=== PATIENT | male | born 1965 | race Caucasian/White ===

== ENCOUNTER 2022-01-31 03:29 | Emergency (ER) | payer MEDICAID ==
[~2022-01-31] VITALS: Ht 185.4 cm; Wt 95.3 kg
[2022-01-31 03:37] VITALS: BP 156/87
--- NOTE | 2022-01-31 03:37 | NUR ---
to bed via wheelchair
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
--- NOTE | 2022-01-31 03:54 | NUR ---
RECIEVED VERBAL ORDER TO GIVE 60MG TORADOL IM FOR PAIN. ORDERS CARRIED OUT.
[2022-01-31] MEDS ORDERED: KETOROLAC 60 MG/2 ML VIAL IM ONE (03:56)
[2022-01-31] MEDS: KETOROLAC 60 MG/2 ML VIAL IM ONE (03:59)
--- NOTE | 2022-01-31 03:59 | NUR ---
PT MEDICATED PER ORDERS.
--- NOTE | 2022-01-31 04:00 | NUR ---
RAD AT BEDSIDE
[2022-01-31] MEDS ORDERED: LIDOCAINE 2% 1000 MG/50 ML VIAL INJ ONE (04:40)
[2022-01-31] MEDS: LIDOCAINE 2% 1000 MG/50 ML VIAL INJ ONE (04:42)
--- NOTE | 2022-01-31 04:42 | NUR ---
RECEIVED VERBAL ORDER FROM TO PULL LIDOCAINE 2% WITHOUT EPI, ORDER CARRIED OUT
--- NOTE | 2022-01-31 05:28 | NUR ---
LIYA COLLECTED FLUID FROM LEFT KNEE, TAKEN TO LAB AND GIVEN TO CHERYL.
[2022-01-31] MEDS ORDERED: CEPH500C16 PO (05:34)
[2022-01-31] MEDS ORDERED: IBUP-1878 PO (05:34)
[2022-01-31] MEDS ORDERED: HYDR-5080 PO (05:34)
[2022-01-31 05:51] VITALS: BP 156/87
--- NOTE | 2022-01-31 05:51 | NUR ---
Patient discharged with v/s stable. Written and verbal after care instructions given and explained. Patient alert, oriented and verbalized understanding of instructions. Ambulatory with steady gait. All questions addressed prior to discharge. ID band removed. Patient advised to follow up with PMD. Rx of NORCO, KEFLEX, AND IBUPROFEN given. Patient educated on indication of medication including possible reaction and side effects. Opportunity to ask questions provided and answered.
[2022-01-31 18:10] LABS: APPEARANCE,SPUN,BODY FLUID CLEAR (CLEAR); APPEARANCE,UNSPUN,BODY FLUID HAZY (CLEAR); COLOR,BODY FLUID RED (LT YELLOW); SPECIMENTYPE,BODY FLUID SYNOVIAL; TOTAL VOLUME,BODY FLUID 10 mL
[2022-01-31 18:13] LABS: GLUCOSE,BODY FLUID 31 mg/dL
[2022-02-05] MEDS ORDERED: CEPH500C16 PO (11:29)
[2022-02-05] MEDS ORDERED: IBUP-1878 PO (11:29)
[2022-02-05] MEDS ORDERED: HYDR-5080 PO (11:29)
== END 2022-01-31 05:51 | disposition home or self-care (01) ==
LOC: MED 03:29
DX: M25.462 Effusion, left knee (principal); Z79.899 Other long term (current) drug therapy
CPT/HCPCS: 36415; 73562; 82945; 84157; 84560; 87070; 96372; 99284; J1885; J2001; Q0092

== ENCOUNTER 2022-06-10 21:13 | Inpatient (IN) | payer MEDICAID ==
[~2022-06-10] VITALS: Ht 185.4 cm; Wt 97.5 kg
[~2022-06-10 21:13] MED LIST: CEPH500C16 PO; HYDR-5080 PO; IBUP-1878 PO
[2022-06-10 21:20] VITALS: BP 192/110
--- NOTE | 2022-06-10 21:50 | NUR ---
PT SEEN BY DR. DIAZ IN CHAIR
[2022-06-10] MEDS ORDERED: KETOROLAC 30 MG/ML VIAL IM ONE (21:55)
[2022-06-10] MEDS ORDERED: ONDANSETRON 4 MG ODT PO ONE (21:55)
--- NOTE | 2022-06-10 22:00 | NUR ---
PT TO CHAIR B
--- NOTE | 2022-06-10 22:06 | NUR ---
18G TO RT AC. BLOOD DRAWN VIA IV START
[2022-06-10 22:14] LABS: BASOPHILS # (AUTO) 0.1 K/uL (0.00-0.22); BASOPHILS % (AUTO) 0.6 % (0.0-2.0); HEMATOCRIT 40.6 % (36-52); HEMOGLOBIN 13.9 g/dL (12.0-18.0); LYMPHOCYTES # (AUTO) 0.8 K/uL (2.0-11.5); LYMPHOCYTES % (AUTO) 6.1 % (20.5-51.1); MEAN CORPUSCULAR HEMOGLOBIN 28 pg (27-31); MEAN CORPUSCULAR HGB CONC 34 g/dL (33-37); MEAN CORPUSCULAR VOLUME 82.5 fL (80-94); MONOCYTES # (AUTO) 0.3 K/uL (0.8-1.0); MONOCYTES % (AUTO) 2.3 % (1.7-9.3); NEUTROPHILS # (AUTO) 12.4 K/uL (1.8-7.7); PLATELET COUNT (AUTO) 284 K/uL (140-450); RED BLOOD CELL COUNT(AUTO) 4.91 MIL/uL (4.20-6.10); RED CELL DISTRIBUTION WIDTH 14.8 % (11.6-13.7); WHITE BLOOD COUNT (AUTO) 13.6 K/uL (4.8-10.8)
[2022-06-10 22:31] LABS: ALBUMIN 4.4 g/dL (3.4-5.0); ANION GAP 15.5 (8-16); CARBON DIOXIDE 26.5 mmol/L (21-32); CREATININE 1.8 mg/dL (0.6-1.3); TOTAL BILIRUBIN 1.2 mg/dL (0.0-1.0)
--- NOTE | 2022-06-11 01:53 | NUR ---
PT TO BED #3
[2022-06-11] MEDS ORDERED: HEPARIN PER PHARMACY MC PRN (02:00)
[2022-06-11] MEDS ORDERED: cefTRIAXone 1,000 MG VIAL ONE (02:14)
[2022-06-11] MEDS ORDERED: metroNIDAZOLE 500 MG/NS PREMIX 100 ML IV ONE (02:15)
[2022-06-11] MEDS ORDERED: NACL 0.9% 1,000 ML IV ONE (02:15)
--- NOTE | 2022-06-11 02:31 | NUR ---
PT TO BE ADMITED TO HOSPITAL. PT AWARE. COVID SWAB COLLECTED AND SENT TO LAB
[2022-06-11] MEDS ORDERED: NACL 0.9% 1,000 ML IV SCH (02:35)
--- NOTE | 2022-06-11 02:44 | NUR ---
56YR OLD MALE BIB SELF C/O ABD PAIN WITH VOMITING. SX STARTED YESTERDAY MORNING. SHARP LOWER ABD PAIN. PAIN LEVEL 3/10 CURRENTLY. 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 SKIN WARM AND DRY. RESP EVEN AND UNLABORED. PT IS PENDING ADIMMISON ORDERS. PT DENIES SOB OR CP. DENIES FEVER OR DIARRHEA. PT HOB ELEVATED AND PT IS SLEEPING. BED AT LOWEST POSITION BED SIDE RAILS UP X1 NKDA HTN HIGH CHOL
--- NOTE | 2022-06-11 03:05 | NUR ---
PT IS NPO. ORDERS RECIEVED FOR ADMISSION
[2022-06-11] MEDS ORDERED: ATOR10TA PO (03:09)
[2022-06-11] MEDS ORDERED: ATOR10TA51 PO (03:10)
--- NOTE | 2022-06-11 04:49 | NUR ---
URINE COLLECTED AND SENT TO LAB
[2022-06-11] MEDS: LEVOFLOXACIN 750 MG/D5W PREMIX 150 ML IV SCH (04:52)
[2022-06-11 04:53] LABS: APPEARANCE,URINE CLEAR (CLEAR); BILIRUBIN,URINE NEGATIVE (NEGATIVE); BLOOD, URINE TRACE-I (NEGATIVE); COLOR,URINE YELLOW (YELLOW); LEUKOCYTE ESTERASE ,URINE NEGATIVE (NEGATIVE); NITRITE, URINE NEGATIVE (NEGATIVE); PH,URINE 6.5 (5.0-9.0); UGLUCOSE NEGATIVE (NEGATIVE)
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
[2022-06-11 05:11] LABS: RBC,URINE 0-5 /HPF (0-5); WBC,URINE 0-5 /HPF (0-5)
[2022-06-11] MEDS ORDERED: PANTOPRAZOLE 40 MG TABEC PO ONE (05:28)
--- NOTE | 2022-06-11 05:40 | NUR ---
VERBAL ORDER PROTONIX 40MG RECIEVED
--- NOTE | 2022-06-11 07:30 | NUR ---
REPORT RECEIVED FROM LINETTE RANGEL. ASSUMED CARE AT THIS TIME
[2022-06-11] MEDS ORDERED: LISI10TA30 PO (08:37)
[2022-06-11] MEDS ORDERED: PANTOPRAZOLE 40 MG TABEC PO SCH (09:00)
--- NOTE | 2022-06-11 09:00 | NUR ---
MD CELESTE MADE AWARE OF PT VITALS.
--- NOTE | 2022-06-11 09:07 | NUR ---
Patient will be admitted to care of MD CELESTE. Admited to TELE. Will go to room 120A. Belongings list completed. Report to VANESSA HINSON .
--- NOTE | 2022-06-11 09:16 | NUR ---
PATIENT HAS BEEN SCREENED AND CATEGORIZED MODERATE NUTRITION RISK. PATIENT WILL BE SEEN WITHIN 3-5 DAYS OF ADMISSION. REVIEWED BY MERCEDES JERONIMO RD
[2022-06-11] MEDS ORDERED: lisinopriL 10 MG TAB PO SCH (09:23)
[2022-06-11] MEDS: PANTOPRAZOLE 40 MG TABEC PO SCH (09:52)
[2022-06-11] MEDS: NACL 0.9% 1,000 ML IV SCH ×2 (10:00→19:40)
[2022-06-11] MEDS: NIFEdipine 60 MG TABER PO SCH (10:02)
[2022-06-11 12:00] VITALS: BP 186/106
--- NOTE | 2022-06-11 12:43 | NUR ---
RYLAND GUILLORY INFORMED ME OF PT'S BP OF 196/106. NOTIFIED PRIMARY RN VANESSA AND DR. CELESTE FOR ADDITIONAL ORDERS.
[2022-06-11] MEDS: metroNIDAZOLE 500 MG/NS PREMIX 100 ML IV SCH ×2 (12:48→20:47)
[2022-06-11] MEDS ORDERED: hydrALAZINE 20 MG/ML VIAL IVP PRN (12:55)
--- NOTE | 2022-06-11 12:55 | NUR ---
MD CELESTE NOTIFIED PT BP 186/106 NEW ORDER FOR HYDRALAZINE NOTED AND CARRIED OUT PT DENIES CHEST PAIN AND HEADACHE WILL GIVE MED ORDERED
--- NOTE | 2022-06-11 13:30 | NUR ---
DC PLANNING [facility]AC[facility]IS MET WITH PT AT BEDSIDE TO COMPLETE ASSESSMENT. PT ALERT AND ORIENTED AND ABLE TO PROVIDE HIS OWN INFORMATION. PT REPORTS RESIDING IN A SINGLE STORY HOME, WITH FRIENDS, AT THE ADDRESS LISTED ON FILE. PT IDENTIFIED MARY BERNARD, DAUGHTER [phone] AND SHAREE BERNARD, DAUGHTER, EMERGENCY CONTACTS. PT DENIES AD IN PLACE AND ACCEPTED AD OFFERED BY ARACELIS. PT REPORTS MEETING WITH PCP AT [facility], NEEDED, LAST VISIT; 3-4 WEEKS AGO. PT REPORTS MEDICATION COMPLIANCE AND REPORTS RECEIVING MEDICATION FROM [facility], IN [facility], ON [address] IN CABLE, WHEN NEEDED. PT REPORTS BEING INDEPENDENT IN ALL ACTIVITIES AND DENIES USE OF DME. PT DENIES MH HX. 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 PT REPORTS BEING SOBER FOR 2 YRS WITH HELP OF PENCILLER. PT DECLINED SUBSTANCE USE RESOURCES OFFERED BY ARACELIS. PT DENIES HX OF DIABETES, DIALYSIS, SNF, AND HH. PT REPORTS ADEQUATE FOOD IN THE HOME AND REPORTS RECEIVING $300 OF [employer] MONTHLY. PT REPORTS DC PLAN IS TO RETURN HOME WHEN MEDICALLY STABLE, PROVIDING HIS OWN TRANSPORTATION.SW INQUIRED ON RESOURCES NEEDED, PT DECLINED. Addendum: 06/12/22 at 0826 by Josselyn SOTELO Amended: Links added.
[2022-06-11 15:01] LABS: BASOPHILS % (AUTO) 0.4 % (0.0-2.0); EOSINOPHILS % (AUTO) 0.1 % (0.0-4.0); HEMATOCRIT 37.3 % (36-52); HEMOGLOBIN 12.7 g/dL (12.0-18.0); LYMPHOCYTES # (AUTO) 0.7 K/uL (2.0-11.5); LYMPHOCYTES % (AUTO) 6.4 % (20.5-51.1); MEAN CORPUSCULAR HEMOGLOBIN 28 pg (27-31); MEAN CORPUSCULAR HGB CONC 34 g/dL (33-37); MEAN CORPUSCULAR VOLUME 82.2 fL (80-94); MONOCYTES # (AUTO) 0.6 K/uL (0.8-1.0); MONOCYTES % (AUTO) 5.6 % (1.7-9.3); NEUTROPHILS # (AUTO) 9.7 K/uL (1.8-7.7); NEUTROPHILS % (AUTO) 87.5 % (42.2-75.2); PLATELET COUNT (AUTO) 224 K/uL (140-450); RED BLOOD CELL COUNT(AUTO) 4.54 MIL/uL (4.20-6.10); RED CELL DISTRIBUTION WIDTH 14.7 % (11.6-13.7); WHITE BLOOD COUNT (AUTO) 11.1 K/uL (4.8-10.8)
[2022-06-11 15:35] LABS: ANION GAP 12.8 (8-16); CARBON DIOXIDE 25.6 mmol/L (21-32); CREATININE 1.6 mg/dL (0.6-1.3); POTASSIUM 3.4 mmol/L (3.5-5.1)
[2022-06-11 16:00] VITALS: BP 151/80
--- NOTE | 2022-06-11 19:30 | NUR ---
RECEIVED PT REPORT FROM DAY RN FOR CONTINUITY OF CARE. PT AWAKE, ALERT AND ORIENTED X 4, ON ROOM AIR, BREATHING EQUAL AND UNLABORED. COMPLAINS OF R FLANK PAIN. IV ON R AC 18G, RUNNING FLUIDS PER MD ORDER. SKIN IS WARM, DRY AND INTACT. ALL PRECAUTIONS IN PLACE. CALL LIGHT WITHIN REACH. WILL CONTINUE TO MONITOR.
[2022-06-11 20:00] VITALS: BP 157/87
[2022-06-11] MEDS: HYDROcodone/APAP 10/325 MG 1 TAB TAB PO PRN (20:47)
[2022-06-11] MEDS ORDERED: ATORVASTATIN 20 MG TAB PO SCH (21:00)
--- NOTE | 2022-06-11 21:00 | NUR ---
SCHEDULED MEDICATIONS GIVEN. PT TOLERATED WELL. WILL CONTINUE TO MONITOR.
[2022-06-12] VITALS: BP 132/80
--- NOTE | 2022-06-12 01:12 | NUR ---
VITALS STABLE. NO S/SX OF DISTRESS NOTED. ALL PRECAUTIONS IN PLACE.WILL CONTINUE TO MONITOR.
[2022-06-12] MEDS: LEVOFLOXACIN 750 MG/D5W PREMIX 150 ML IV SCH (02:44)
[2022-06-12] MEDS: HYDROcodone/APAP 10/325 MG 1 TAB TAB PO PRN ×2 (02:48→14:05)
[2022-06-12 04:00] VITALS: BP 152/78
[2022-06-12] MEDS: metroNIDAZOLE 500 MG/NS PREMIX 100 ML IV SCH ×2 (04:29→12:15)
[2022-06-12] MEDS: NACL 0.9% 1,000 ML IV SCH ×2 (05:40→15:40)
[2022-06-12 05:49] LABS: BASOPHILS % (AUTO) 0.4 % (0.0-2.0); EOSINOPHILS % (AUTO) 0.2 % (0.0-4.0); HEMATOCRIT 32.7 % (36-52); HEMOGLOBIN 11.5 g/dL (12.0-18.0); LYMPHOCYTES # (AUTO) 1.1 K/uL (2.0-11.5); LYMPHOCYTES % (AUTO) 11.3 % (20.5-51.1); MEAN CORPUSCULAR HEMOGLOBIN 29 pg (27-31); MEAN CORPUSCULAR HGB CONC 35 g/dL (33-37); MEAN CORPUSCULAR VOLUME 81.8 fL (80-94); MONOCYTES # (AUTO) 0.8 K/uL (0.8-1.0); MONOCYTES % (AUTO) 8.2 % (1.7-9.3); NEUTROPHILS # (AUTO) 7.6 K/uL (1.8-7.7); NEUTROPHILS % (AUTO) 79.9 % (42.2-75.2); PLATELET COUNT (AUTO) 194 K/uL (140-450); RED BLOOD CELL COUNT(AUTO) 3.99 MIL/uL (4.20-6.10); WHITE BLOOD COUNT (AUTO) 9.5 K/uL (4.8-10.8)
[2022-06-12 06:26] LABS: ANION GAP 11.2 (8-16); CARBON DIOXIDE 26.2 mmol/L (21-32); CREATININE 1.6 mg/dL (0.6-1.3); POTASSIUM 3.4 mmol/L (3.5-5.1)
[2022-06-12 06:42] LABS: MAGNESIUM 1.7 mg/dL (1.8-2.4); PHOSPHORUS 1.8 mg/dL (2.5-4.9)
--- NOTE | 2022-06-12 06:51 | NUR ---
PT IS STABLE. NO ACUTE EVENTS THROUGHOUT THE NIGHT. NO S/SX OF DISTRESS AT THIS MOMENT. ALL NEEDS ATTENDED. ALL PRECAUTIONS IN PLACE. CALL LIGHT WITHIN REACH. WILL CONTINUE TO MONITOR.
[2022-06-12 08:00] VITALS: BP 113/67
[2022-06-12] MEDS: PANTOPRAZOLE 40 MG TABEC PO SCH (08:46)
[2022-06-12] MEDS: NIFEdipine 60 MG TABER PO SCH (08:46)
[2022-06-12] MEDS ORDERED: LISI10TA30 PO (09:29)
[2022-06-12] MEDS ORDERED: LEVO750T75 PO (09:29)
[2022-06-12] MEDS ORDERED: PSYL0.4C2 PO (09:30)
[2022-06-12] MEDS ORDERED: MAG SULF 2000 MG/WATER PREMIX 50 ML IV SCH (10:30)
[2022-06-12 12:00] VITALS: BP 126/67
[2022-06-12] MEDS ORDERED: POTASSIUM PHOSPHATE 30 MM in NACL 0.9% 500 ML IV SCH (14:00)
[2022-06-12 14:33] LABS: BASOPHILS # (AUTO) 0.1 K/uL (0.00-0.22); BASOPHILS % (AUTO) 0.7 % (0.0-2.0); EOSINOPHILS % (AUTO) 0.1 % (0.0-4.0); HEMATOCRIT 35.6 % (36-52); HEMOGLOBIN 12.3 g/dL (12.0-18.0); LYMPHOCYTES # (AUTO) 0.9 K/uL (2.0-11.5); MEAN CORPUSCULAR HEMOGLOBIN 28 pg (27-31); MEAN CORPUSCULAR HGB CONC 35 g/dL (33-37); MONOCYTES # (AUTO) 0.6 K/uL (0.8-1.0); MONOCYTES % (AUTO) 6.8 % (1.7-9.3); NEUTROPHILS # (AUTO) 7.2 K/uL (1.8-7.7); NEUTROPHILS % (AUTO) 82.4 % (42.2-75.2); PLATELET COUNT (AUTO) 201 K/uL (140-450); RED BLOOD CELL COUNT(AUTO) 4.34 MIL/uL (4.20-6.10); RED CELL DISTRIBUTION WIDTH 14.6 % (11.6-13.7); WHITE BLOOD COUNT (AUTO) 8.7 K/uL (4.8-10.8)
[2022-06-12 14:48] LABS: ANION GAP 13.9 (8-16); CARBON DIOXIDE 25.4 mmol/L (21-32); CREATININE 1.7 mg/dL (0.6-1.3); POTASSIUM 3.3 mmol/L (3.5-5.1)
[2022-06-12 16:00] VITALS: BP 127/71
[2022-06-12 20:52] LABS: URINE TOTAL PROTEIN 136.5 mg/dL (0-12)
--- NOTE | 2022-06-18 16:40 | NUR ---
pt dc'd home on 06/12/22 at 1857
== END 2022-06-12 18:50 | disposition home or self-care (01) | DRG 720 ==
LOC: MED 21:13 → OBSVTOIN 06-11 02:43 → MTU 06-11 02:43
DX: A41.9 Sepsis, unspecified organism (principal); N17.0 Acute kidney failure with tubular necrosis; E83.39 Other disorders of phosphorus metabolism; K57.92 Diverticulitis of intestine, part unspecified, without perforation or abscess without bleeding; E83.51 Hypocalcemia; N28.0 Ischemia and infarction of kidney; E86.0 Dehydration; N26.1 Atrophy of kidney (terminal); E87.6 Hypokalemia; E83.42 Hypomagnesemia; Z20.822 Contact with and (suspected) exposure to COVID-19; K57.90 Diverticulosis of intestine, part unspecified, without perforation or abscess without bleeding; E78.5 Hyperlipidemia, unspecified; I10 Essential (primary) hypertension; Z79.891 Long term (current) use of opiate analgesic; Z79.899 Other long term (current) drug therapy
CPT/HCPCS: 36415; 71045; 74018; 80048; 80053; 81001; 82570; 83690; 83735; 84100; 84484; 85025; 87040; 93976; 96365; 96367; 96372; 96375; 99291; J0360; J0696; J1644; J1885; J1956; J3475; J3490; J7030; Q0092; Q0162; Q9967